=== PATIENT | female | born 1935 | race Caucasian/White ===

== ENCOUNTER 2019-03-17 12:05 | Emergency (ER) | payer MEDICARE ==
[~2019-03-17] VITALS: Ht 162.6 cm; Wt 66.0 kg
[2019-03-17 12:12] VITALS: BP 143/82
== END 2019-03-17 13:40 | disposition home or self-care (01) ==
LOC: ED 12:34
DX: K08.89 Other specified disorders of teeth and supporting structures (principal); I10 Essential (primary) hypertension
CPT/HCPCS: 99281